=== PATIENT | female | born 1965 | race Caucasian/White ===

== ENCOUNTER 2016-09-29 16:38 | Emergency (ER) | payer OTHER ==
[~2016-09-29] VITALS: Ht 167.6 cm; Wt 75.0 kg
[2016-09-29 16:41] VITALS: TEMP 97.2
[2016-09-29] MEDS ORDERED: DESYREL 50MG50 MG PO (16:44)
[2016-09-29] MEDS ORDERED: IMITREX100 MG PO (16:44)
[2016-09-29 17:19] LABS: BASO # 0.1 (0.0-0.2); BASO % 1.2 % (0.0-2.0); EOS # 0.3 (0.0-0.7); EOS % 2.7 % (0-4.0); GRAN # 6.7 (1.4-6.5); HEMATOCRIT 40.3 % (37.0-47.0); HEMOGLOBIN 13.6 g/dl (12.5-16.0); LYMPH # 1.8 (1.2-3.4); LYMPH % 18.7 % (20.0-51.0); MEAN CELL VOLUME 92 fl (80.0-100.0); MEAN CORPUSCULAR HEMOGLOBIN 31 pg (27.0-31.0); MEAN CORPUSCULAR HGB CONC 34 g/dl (33.0-37.0); MEAN PLATELET VOLUME 10.1 fl (7.4-10.4); MONO # 0.6 (0.1-0.6); MONO % 6.1 % (1.7-9.3); PLATELET COUNT 208 K/mm3 (130-400); RED BLOOD COUNT 4.39 M/mm3 (4.10-5.30); REDCELL DISTRIBUTION WIDTH-CV 12.2 % (11.5-14.5); WHITE BLOOD COUNT 9.4 K/mm3 (4.8-10.8)
[2016-09-29 17:38] LABS: ADJUSTED CALCIUM 9.2 mg/dL (8.4-10.2); ALBUMIN 4.2 gm/dL (3.5-5.0); BILIRUBIN,TOTAL 0.5 mg/dL (0.0-1.0); CALCIUM 9.4 mg/dL (8.4-10.2); CREATININE, serum 0.81 mg/dL (0.52-1.25); POTASSIUM 3.9 mmol/L (3.4-5.0); TOTAL PROTEIN 6.7 gm/dL (6.4-8.2)
[2016-09-29 18:29] LABS: PH 7 (5-8); SQUAMOUS EPITHELIAL 0-2 /hpf; URINE APPEARANCE Hazy; URINE BACTERIA Rare /hpf; URINE BILIRUBIN Negative (NEGATIVE); URINE BLOOD Negative (NEGATIVE); URINE COLOR Yellow; URINE GLUCOSE Negative (NEGATIVE); URINE KETONE Negative (NEGATIVE); URINE RBC None Seen /hpf; URINE UROBILINOGEN Negative (NEGATIVE)
[2016-09-29] MEDS ORDERED: BONINE25 MG PO (19:05)
[2016-09-29 19:20] VITALS: BP 115/74; PULSE 58
== END 2016-09-29 19:33 | disposition home or self-care (01) ==
LOC: COL.ER 16:38
PROVIDERS: Family Medicine
DX: R42 Dizziness and giddiness (principal); R11.0 Nausea; G43.909 Migraine, unspecified, not intractable, without status migrainosus
CPT/HCPCS: J2550; J7030

== ENCOUNTER → 2016-11-29 | Outpatient (CLI) | payer OTHER ==
[~2016-11-29] MED LIST: BONINE25 MG PO; DESYREL 50MG50 MG PO; IMITREX100 MG PO
== END ==
LOC: MC.RAD 15:00
DX: Z12.31 Encounter for screening mammogram for malignant neoplasm of breast (principal)

== ENCOUNTER → 2017-11-19 | Outpatient (CLI) | payer BC | LOC: COL.RAD 14:41 | DX: G43.009 Migraine without aura, not intractable, without status migrainosus (principal); J32.9 Chronic sinusitis, unspecified ==

== ENCOUNTER 2018-08-02 03:31 | Emergency (ER) | payer BC ==
[~2018-08-02] VITALS: Ht 167.6 cm; Wt 77.3 kg
[2018-08-02 03:37] VITALS: TEMP 98
[2018-08-02 05:20] VITALS: BP 143/93; PULSE 52
== END 2018-08-02 05:32 | disposition home or self-care (01) ==
LOC: COL.ER 03:31
DX: G43.909 Migraine, unspecified, not intractable, without status migrainosus (principal); Z90.710 Acquired absence of both cervix and uterus
CPT/HCPCS: J1170

== ENCOUNTER 2019-01-07 01:08 | Emergency (ER) | payer BC ==
[~2019-01-07] VITALS: Ht 165.1 cm; Wt 77.3 kg
[2019-01-07 01:10] VITALS: TEMP 97.7
[2019-01-07] MEDS ORDERED: DILAUDID 2MG TAB2 MG PO (01:42)
[2019-01-07] MEDS ORDERED: TYLENOL 325MG325 MG PO (01:42)
[2019-01-07] MEDS ORDERED: FENTANYL 50MCG TD (01:42)
[2019-01-07] MEDS ORDERED: NORCO 325 MG-51 TAB PO (03:18)
[2019-01-07] MEDS ORDERED: ZOFRAN ODT4 MG SL (03:18)
[2019-01-07 04:23] VITALS: BP 141/78; PULSE 76
== END 2019-01-07 04:23 | disposition home or self-care (01) ==
LOC: COL.ER 01:08
DX: R51 Headache (principal); F17.210 Nicotine dependence, cigarettes, uncomplicated; Z90.710 Acquired absence of both cervix and uterus
CPT/HCPCS: J1200; J2405; J2765; J3010; J7040

== ENCOUNTER 2019-04-23 08:30 | Outpatient (RCR) | payer BC ==
[~2019-04-23 08:30] MED LIST changes: +DILAUDID 2MG TAB2 MG PO; +FENTANYL 50MCG TD; +NORCO 325 MG-51 TAB PO; +TYLENOL 325MG325 MG PO; +ZOFRAN ODT4 MG SL
== END 2019-04-29 | disposition still patient (30) ==
LOC: WSPT
DX: R53.1 Weakness (principal); R42 Dizziness and giddiness

== ENCOUNTER → 2019-09-23 | Outpatient (CLI) | payer BC | LOC: MC.RAD 08:38 | DX: Z12.31 Encounter for screening mammogram for malignant neoplasm of breast (principal); Z00.00 Encounter for general adult medical examination without abnormal findings ==

== ENCOUNTER → 2021-03-16 | Outpatient (CLI) | payer BC | LOC: MC.RAD 08:27 | DX: Z12.31 Encounter for screening mammogram for malignant neoplasm of breast (principal) ==

== ENCOUNTER → 2022-04-04 | Outpatient (CLI) | payer OTHER | LOC: MC.RAD 08:09 | DX: Z12.31 Encounter for screening mammogram for malignant neoplasm of breast (principal) ==

== ENCOUNTER 2023-03-12 18:32 | Emergency (ER) | payer OTHER ==
[~2023-03-12] VITALS: Ht 165.1 cm; Wt 79.5 kg
[2023-03-12 18:38] VITALS: TEMP 98.4
[2023-03-12 19:26] LABS: COLLECTION METHOD CLEAN CATCH
[2023-03-12 19:42] LABS: BASO # 0.1 K/mm3 (0.0-0.2); BASO % 0.7 % (0.0-2.0); EOS # 0.1 K/mm3 (0.0-0.7); EOS % 0.9 % (0.0-4.0); GRAN # 13.4 K/mm3 (1.4-6.5); GRAN % 83.4 % (42.2-75.2); HEMATOCRIT 41.9 % (37.0-47.0); HEMOGLOBIN 14.2 g/dl (12.5-16.0); LYMPH # 1.2 K/mm3 (1.2-3.4); LYMPH % 7.1 % (20.0-51.0); MEAN CELL VOLUME 91 fl (80.0-100.0); MEAN CORPUSCULAR HEMOGLOBIN 31 pg (27-31); MEAN CORPUSCULAR HGB CONC 34 g/dl (33.0-37.0); MEAN PLATELET VOLUME 9.7 fl (7.4-10.4); MONO # 1.2 K/mm3 (0.1-0.6); MONO % 7.5 % (1.7-9.3); PLATELET COUNT 301 K/mm3 (130-400); RED BLOOD COUNT 4.59 M/mm3 (4.10-5.30); REDCELL DISTRIBUTION WIDTH-CV 13.2 % (11.5-14.5)
[2023-03-12 19:53] LABS: ALBUMIN 4.1 gm/dL (3.5-5.0); BILIRUBIN,TOTAL 0.4 mg/dL (0.2-1.2); C-REACTIVE PROTEIN 2.87 mg/dL (0.00-0.50); CALCIUM 9.6 mg/dL (8.4-10.2); CREATININE, serum 0.79 mg/dL (0.57-1.11); POTASSIUM 3.6 mmol/L (3.5-4.5); TOTAL PROTEIN 6.8 gm/dL (6.2-8.1)
[2023-03-12 20:13] LABS: SQUAMOUS EPITHELIAL 0-2 /hpf (0-10); URINE APPEARANCE Clear (CLEAR/HAZY); URINE BLOOD TRACE-INTACT (NEGATIVE); URINE COLOR Yellow (YELLOW); URINE GLUCOSE Negative (NEGATIVE); URINE KETONE Negative (NEGATIVE); URINE NITRATE Negative (NEGATIVE); URINE PROTEIN(semi-quant) Negative (NEGATIVE); URINE RBC 0-2 /hpf (0-2); URINE UROBILINOGEN 0.2 E.U/dL (0.2-1.0)
[2023-03-12 20:14] LABS: MUCOUS Present (NOT PRESENT); URINE BACTERIA Occasional /hpf (NONE SEEN)
[2023-03-12] MEDS ORDERED: CIPRO 500MG TA500 MG PO (21:48)
[2023-03-12] MEDS ORDERED: FLAGYL500 MG PO (21:48)
[2023-03-12 21:55] VITALS: BP 156/78; PULSE 90
== END 2023-03-12 22:04 | disposition home or self-care (01) ==
LOC: COL.ER 18:32
PROVIDERS: Nurse Practitioner Primary Care
DX: K57.92 Diverticulitis of intestine, part unspecified, without perforation or abscess without bleeding (principal); F17.200 Nicotine dependence, unspecified, uncomplicated; Z88.0 Allergy status to penicillin; Z88.2 Allergy status to sulfonamides
CPT/HCPCS: J0780; J7030; Q9967